=== PATIENT | male | born 1960 | race Caucasian/White ===

== ENCOUNTER 2018-01-27 15:33 | Inpatient (IN) | payer BC ==
[~2018-01-27] VITALS: Ht 188 cm; Wt 120.5 kg
[2018-01-27] MEDS ORDERED: SODIUM CHLORIDE 0.9% 1,000 ML IV ONE (15:58)
[2018-01-27] MEDS ORDERED: SODIUM CHLORIDE FLUSH 10ML SYR IVF ONE (16:00)
[2018-01-27] MEDS ORDERED: SODIUM CHLORIDE 0.9% 1,000ML IVBOLUS ONE (16:00)
[2018-01-27] MEDS ORDERED: ACETAMINOPHEN 500 MG TABLET PO ONE (16:00)
[2018-01-27] MEDS ORDERED: ONDANSETRON ODT 4 MG PO ONE (16:00)
[2018-01-27] MEDS ORDERED: LISI2.5T PO ×2 (16:02→17:37)
[2018-01-27] MEDS ORDERED: GABA-827 PO ×2 (16:02→17:38)
[2018-01-27] MEDS ORDERED: METO25TA35 PO (16:03)
[2018-01-27] MEDS ORDERED: PRAV20TA2 PO (16:03)
[2018-01-27] MEDS ORDERED: HYDR10TA4 PO (16:04)
[2018-01-27] MEDS ORDERED: CHOL100011 PO ×2 (16:04→17:41)
[2018-01-27] MEDS ORDERED: CANA1TAB4 PO (16:05)
[2018-01-27] MEDS ORDERED: ASPI-650 PO (16:05)
[2018-01-27] MEDS ORDERED: TAMS-11 PO (16:07)
[2018-01-27 16:18] LABS: MEAN CORPUSCULAR HEMOGLOBIN 30.3 pg (27.5-34.5); MEAN CORPUSCULAR HGB CONC 33.5 g/dL (33.2-36.2); MEAN CORPUSCULAR VOLUME 90.5 fL (81-97); MEAN PLATELET VOLUME 6.5 fL (7.4-10.4); PLATELET COUNT 220 x10^3/uL (130-400); RED CELL DISTRIBUTION WIDTH 13.3 % (9.4-14.8)
[2018-01-27] MEDS ORDERED: ACETAMINOPHEN 500 MG TABLET ONE (16:21)
[2018-01-27] MEDS ORDERED: ONDANSETRON ODT 4 MG ONE (16:21)
[2018-01-27 16:31] LABS: ALANINE AMINOTRANSFERASE 35 U/L (12-78); ALBUMIN 3.5 g/dL (3.4-5.0); ANION GAP 8 mmol/L (5-15); CALCIUM 8.6 mg/dL (8.5-10.1); CHLORIDE 103 mmol/L (98-107)
[2018-01-27 16:33] LABS: ALKALINE PHOSPHATASE 55 U/L (45-117); TOTAL PROTEIN 7.4 g/dL (6.4-8.2)
[2018-01-27 16:34] LABS: BASOPHILS # (AUTO) 0.03 x10^3/uL (0-0.1); BASOPHILS % (AUTO) 0 % (0-1); EOSINOPHILS % (AUTO) 0 % (1-7); LYMPHOCYTES # (AUTO) 0.71 x10^3/uL (1-3.4); LYMPHOCYTES % (AUTO) 4 % (22-44); MD SCAN; MONOCYTES # (AUTO) 0.95 x10^3/uL (0.2-0.8); MONOCYTES % (AUTO) 5 % (2-9); NEUTROPHILS # (AUTO) 16.31 x10^3/uL (1.8-6.8); NEUTROPHILS % (AUTO) 91 % (42-75)
[2018-01-27 16:54] LABS: MICROSCOPIC INDICATED
[2018-01-27 16:55] LABS: CULTURE INDICATED? YES
[2018-01-27] MEDS ORDERED: CEFTRIAXONE PMX 1GM/50ML 50 ML ONE (16:58)
[2018-01-27] MEDS ORDERED: CEFTRIAXONE PMX 1GM/50ML 50 ML IV ONE (17:00)
[2018-01-27] MEDS ORDERED: ONDANSETRON 2MG/ML, 2ML IVPush PRN (18:30)
[2018-01-27] MEDS: CEFTRIAXONE PMX 1GM/50ML 50 ML IV ONE ×2 (18:30→19:51)
[2018-01-27] MEDS ORDERED: POLYETHYLENE GLYCOL 17 GM PACKET PO PRN (18:30)
[2018-01-27] MEDS ORDERED: LABETALOL 5MG/ML, 20ML IVPush PRN (18:30)
[2018-01-27] MEDS ORDERED: BISACODYL 10 MG SUPP PR PRN (18:30)
[2018-01-27] MEDS ORDERED: ACETAMINOPHEN 325 MG TABLET PO PRN (18:30)
[2018-01-27] MEDS: HYDROcodone/APAP 5/325 TABLET PO PRN (19:43)
[2018-01-27] MEDS: HEPARIN 5,000 UNITS/ML, 1ML SQ SCH (19:44)
[2018-01-27] MEDS: NS + 20MEQ KCL 1,000 ML IV SCH (19:51)
[2018-01-27 21:11] VITALS: BP 118/63
[2018-01-27] MEDS: hydrOXyzine 10MG TABLET PO SCH (21:13)
[2018-01-27] MEDS: PRAVASTATIN 20 MG TABLET PO SCH (21:13)
[2018-01-27] MEDS: TAMSULOSIN 0.4 MG CAP.ER.24H PO SCH (21:13)
[2018-01-27] MEDS: METOPROLOL TARTRATE 25 MG TABLET PO SCH (21:13)
[2018-01-27 22:24] LABS: CHLORIDE,URINE RANDOM 43 mmol/L; POTASSIUM,URINE RANDOM 40 mmol/L; SODIUM,URINE RANDOM 52 mmol/L
[2018-01-28 00:26] VITALS: BP 162/67
[2018-01-28] MEDS: HYDROcodone/APAP 5/325 TABLET PO PRN ×4 (00:33→21:16)
[2018-01-28] MEDS: HEPARIN 5,000 UNITS/ML, 1ML SQ SCH ×3 (04:49→21:14)
[2018-01-28] MEDS: NS + 20MEQ KCL 1,000 ML IV SCH ×2 (04:49→14:25)
[2018-01-28 05:42] LABS: ANION GAP 6 mmol/L (5-15); CALCIUM 8.4 mg/dL (8.5-10.1); CHLORIDE 103 mmol/L (98-107); CREATININE 1.31 mg/dL (0.7-1.3); MEAN CORPUSCULAR HEMOGLOBIN 30.8 pg (27.5-34.5); MEAN CORPUSCULAR HGB CONC 33.5 g/dL (33.2-36.2); MEAN PLATELET VOLUME 6.6 fL (7.4-10.4); PLATELET COUNT 207 x10^3/uL (130-400); RED BLOOD COUNT 4.13 x10^6/uL (4.38-5.82); RED CELL DISTRIBUTION WIDTH 13.2 % (9.4-14.8)
[2018-01-28 06:22] LABS: BASOPHILS # (AUTO) 0.12 x10^3/uL (0-0.1); BASOPHILS % (AUTO) 1 % (0-1); EOSINOPHILS # (AUTO) 0.02 x10^3/uL (0-0.4); EOSINOPHILS % (AUTO) 0 % (1-7); LYMPHOCYTES # (AUTO) 1.13 x10^3/uL (1-3.4); LYMPHOCYTES % (AUTO) 7 % (22-44); MD SCAN; MONOCYTES # (AUTO) 0.92 x10^3/uL (0.2-0.8); MONOCYTES % (AUTO) 6 % (2-9); NEUTROPHILS # (AUTO) 13.58 x10^3/uL (1.8-6.8); NEUTROPHILS % (AUTO) 86 % (42-75)
[2018-01-28 06:47] VITALS: BP 118/67
[2018-01-28] MEDS: [UNRECOGNIZED DRUG - OTHER] PO SCH (09:00)
[2018-01-28] MEDS ORDERED: TAMSULOSIN 0.4 MG CAP.ER.24H PO SCH (09:00)
[2018-01-28] MEDS ORDERED: LISINOPRIL 20 MG TABLET PO SCH (09:00)
[2018-01-28] MEDS: METFORMIN HCL PO SCH (09:00)
[2018-01-28] MEDS: CANAGLIFLOZIN PO SCH (09:00)
[2018-01-28] MEDS: GABAPENTIN 400 MG CAPSULE PO SCH (09:51)
[2018-01-28] MEDS: METOPROLOL TARTRATE 25 MG TABLET PO SCH ×2 (09:52→21:16)
[2018-01-28] MEDS: hydrOXyzine 10MG TABLET PO SCH ×2 (09:53→21:15)
[2018-01-28 12:26] VITALS: BP 106/67
[2018-01-28] MEDS: CEFTRIAXONE PMX 2GM/50ML 50 ML IV SCH (16:27)
[2018-01-28 19:00] VITALS: BP 113/64
[2018-01-28] MEDS: PRAVASTATIN 20 MG TABLET PO SCH (21:15)
[2018-01-28] MEDS: TAMSULOSIN 0.4 MG CAP.ER.24H PO SCH (21:16)
[2018-01-28] MEDS: LISINOPRIL 20 MG TABLET PO SCH (21:16)
[2018-01-28] MEDS: DOCUSATE 100 MG CAPSULE PO PRN (21:31)
[2018-01-29 02:27] VITALS: BP 135/71
[2018-01-29] MEDS: HYDROcodone/APAP 5/325 TABLET PO PRN (02:38)
[2018-01-29] MEDS: IBUPROFEN 600 MG TABLET PO PRN ×3 (04:17→17:55)
[2018-01-29] MEDS: SODIUM CHLORIDE 0.9% 1,000 ML IV SCH ×2 (04:18→17:01)
[2018-01-29] MEDS: HEPARIN 5,000 UNITS/ML, 1ML SQ SCH ×3 (04:18→20:40)
[2018-01-29 05:03] LABS: BASOPHILS % (AUTO) 0 % (0-1); EOSINOPHILS # (AUTO) 0.03 x10^3/uL (0-0.4); EOSINOPHILS % (AUTO) 0 % (1-7); LYMPHOCYTES # (AUTO) 0.47 x10^3/uL (1-3.4); LYMPHOCYTES % (AUTO) 5 % (22-44); MD NO; MEAN CORPUSCULAR HEMOGLOBIN 31.1 pg (27.5-34.5); MEAN CORPUSCULAR HGB CONC 33.8 g/dL (33.2-36.2); MEAN PLATELET VOLUME 6.7 fL (7.4-10.4); MONOCYTES # (AUTO) 0.59 x10^3/uL (0.2-0.8); MONOCYTES % (AUTO) 7 % (2-9); NEUTROPHILS % (AUTO) 88 % (42-75); PLATELET COUNT 219 x10^3/uL (130-400); RED BLOOD COUNT 4.05 x10^6/uL (4.38-5.82); RED CELL DISTRIBUTION WIDTH 13.1 % (9.4-14.8)
[2018-01-29 05:08] LABS: ANION GAP 9 mmol/L (5-15); CALCIUM 8.6 mg/dL (8.5-10.1); CHLORIDE 100 mmol/L (98-107); CREATININE 1.22 mg/dL (0.7-1.3)
[2018-01-29 06:34] VITALS: BP 111/78
[2018-01-29] MEDS: CANAGLIFLOZIN PO SCH (09:31)
[2018-01-29] MEDS: METFORMIN HCL PO SCH (09:31)
[2018-01-29] MEDS: [UNRECOGNIZED DRUG - OTHER] PO SCH (09:31)
[2018-01-29] MEDS: GABAPENTIN 400 MG CAPSULE PO SCH (09:33)
[2018-01-29] MEDS: METOPROLOL TARTRATE 25 MG TABLET PO SCH ×2 (09:33→20:41)
[2018-01-29] MEDS: hydrOXyzine 10MG TABLET PO SCH ×2 (09:33→20:40)
[2018-01-29] MEDS ORDERED: MEPERIDINE/PF 50 MG/ML IM PRN (12:00)
[2018-01-29] MEDS: MEPERIDINE/PF 50 MG/ML IVPush PRN (12:39)
[2018-01-29 14:51] VITALS: BP 107/67
[2018-01-29] MEDS: CEFTRIAXONE PMX 2GM/50ML 50 ML IV SCH (17:01)
[2018-01-29 19:34] VITALS: BP 128/67
[2018-01-29] MEDS: TAMSULOSIN 0.4 MG CAP.ER.24H PO SCH (20:41)
[2018-01-29] MEDS: LISINOPRIL 20 MG TABLET PO SCH (20:41)
[2018-01-29] MEDS: PRAVASTATIN 20 MG TABLET PO SCH (20:41)
[2018-01-29] MEDS: DOCUSATE 100 MG CAPSULE PO PRN (20:54)
[2018-01-30] MEDS: MEPERIDINE/PF 50 MG/ML IVPush PRN ×2 (01:14→11:41)
[2018-01-30 01:20] VITALS: BP 134/78
[2018-01-30] MEDS: IBUPROFEN 600 MG TABLET PO PRN (03:44)
[2018-01-30] MEDS: HEPARIN 5,000 UNITS/ML, 1ML SQ SCH ×2 (04:32→12:00)
[2018-01-30] MEDS: SODIUM CHLORIDE 0.9% 1,000 ML IV SCH (08:00)
[2018-01-30] MEDS: [UNRECOGNIZED DRUG - OTHER] PO SCH (08:55)
[2018-01-30] MEDS: CANAGLIFLOZIN PO SCH (08:55)
[2018-01-30] MEDS: hydrOXyzine 10MG TABLET PO SCH (08:55)
[2018-01-30] MEDS: METFORMIN HCL PO SCH (08:55)
[2018-01-30] MEDS: METOPROLOL TARTRATE 25 MG TABLET PO SCH (08:56)
[2018-01-30] MEDS: TAMSULOSIN 0.4 MG CAP.ER.24H PO SCH (08:56)
[2018-01-30] MEDS ORDERED: GABAPENTIN 300 MG CAPSULE PO SCH (09:00)
[2018-01-30 09:44] VITALS: BP 120/74
[2018-01-30] MEDS ORDERED: AMOX1TAB64 PO (10:45)
[2018-01-30] MEDS: CEFTRIAXONE PMX 2GM/50ML 50 ML IV SCH (10:46)
== END 2018-01-30 13:18 | disposition home or self-care (01) | DRG 871 ==
LOC: ED 17:17 → EDIP 17:30 → 3NE 18:25
PROVIDERS: ADMIT Internal Medicine; ATTEND Hospitalist
DX: A41.9 Sepsis, unspecified organism (principal); N17.0 Acute kidney failure with tubular necrosis; E87.1 Hypo-osmolality and hyponatremia; N41.0 Acute prostatitis; N30.91 Cystitis, unspecified with hematuria; I11.9 Hypertensive heart disease without heart failure; B96.20 Unspecified Escherichia coli [E. coli] as the cause of diseases classified elsewhere; D64.9 Anemia, unspecified; E11.40 Type 2 diabetes mellitus with diabetic neuropathy, unspecified; E11.65 Type 2 diabetes mellitus with hyperglycemia; E78.5 Hyperlipidemia, unspecified; E86.9 Volume depletion, unspecified; N40.0 Benign prostatic hyperplasia without lower urinary tract symptoms; Z16.24 Resistance to multiple antibiotics; Z79.84 Long term (current) use of oral hypoglycemic drugs; Z83.3 Family history of diabetes mellitus; Z86.73 Personal history of transient ischemic attack (TIA), and cerebral infarction without residual deficits; Z79.899 Other long term (current) drug therapy; Z79.82 Long term (current) use of aspirin
CPT/HCPCS: 36415; 71045; 80048; 80053; 81001; 82436; 82570; 83605; 84133; 84145; 84300; 85025; 87040; 87077; 87086; 87186; 93005; 96361; 96365; J0696; J1644; J2175; J3480; Q0162; J7030